=== PATIENT | female | born 1955 | race Caucasian/White ===

== ENCOUNTER 2019-08-14 08:30 | Outpatient (RCR) | payer OTHER, SELFPAY ==
--- NOTE | 2019-07-22 10:30 | PTOPEVAL ---
Thank you for referring this patient to [facility]. Please review, sign, date and return this plan of care SISI. Pt referred to therapy for neck and UE pain and radiating symptoms. She demonstrates posture impairments, joint movement impairment and soft tissue restrictions. Cont PT 2x/wk x 4 wk to address impairments and achieve therapy goals. I agree with and certify that the following plan of care is medically necessary. Referring Physician Date Attending Provider: Meghan Gimenez, PORTER Referring Provider: *PT Outpatient Evaluation Start: 07/22/19 09:07 Freq: Status: Active Protocol: Document 07/22/19 09:17 CAP (Rec: 07/22/19 10:30 CAP [email or web address]) Therapy Assessment Status Assessment Status Assessment Status Evaluation Outpatient Past Medical History Neurological History Hx Other Neurological Disorders Yes: Cervical rediculopathy. Cardiovascular History Hx Hypercholesterolemia Yes Respiratory History Hx Respiratory Disorders No Significant History Gastrointestinal History Hx Gastroesophageal Reflux Disease Yes Genitourinary History Hx Urinary Tract Infection Yes: as a child Musculoskeletal History Hx Arthritis Yes: hip Hx Other Musculoskeletal Disorders Yes: gets injections in lt wrist. Hematological History Hx Hematological Disorders No Significant History Endocrine History Hx Thyroidectomy Yes: goiter removed 1992. HEENT History Hx Sinus Problems Yes: surgery x2. Integumentary History Hx Skin Disorders No Significant History Reproductive History Hx Reproductive Disorders No Significant History Psychosocial History Hx Psychiatric Disorders No Significant History Pain History History of Any Previous or Ongoing No Significant History Instance of Pain Anesthesia History Hx Post-Op Nausea/Vomiting Yes: dizzy & nausea. Evaluation Information Problem Diagnosis neck and chris shoulder pain Onset 06/09/20 Cause lifting heavy object Subjective Information She went on cruise in June Query Text:As Reported By Patient/ when she lifted her luggage Family and noticed increased UE pain. She was using a cane for support, that also increased her pain. She reports raditating symptoms into chris UE. She has been using ice or heat , medication and stretching to manage her pain and symptoms. She reports UE symptoms increase with riding or driving in the car. She is
--- NOTE | 2019-08-14 09:42 | PTOPEVAL ---
Thank you for referring this patient to [facility]. Please review, sign, date and return this plan of care SISI. Linh has received 8 PT visits to address her neck and shoulder pain. She has improved pain, improved symptoms and improved joint motion and strength. She has achieved most of her therapy goals at this time. No additional PT planned at this time for her neck and shoulder impairments. Will keep chart open for possible return following her THR surgery. I agree with and certify that the following plan of care is medically necessary. Referring Physician Date Admitting Provider: Attending Provider: Meghan Gimenez, PORTER Referring Provider: *PT Outpatient Re-Evaluation/Discharge Start: 07/22/19 09:07 Freq: Status: Active Protocol: Document 08/14/19 08:31 RUBEN (Rec: 08/14/19 09:28 [facility] [email or web address]) Therapy Assessment Status Assessment Status Assessment Status Re-evaluation Evaluation Information Problem Diagnosis neck and chris shoulder pain Onset 06/09/20 Cause lifting heavy object Additional Evaluation Detail She is scheduled for hip surgery on 08/18/19. Subjective Information She reports her neck and Query Text:As Reported By Patient/ shoulder are slightly better Family since start of therapy. She has improved radiating symptoms into UE. She does have increased pain with prolonged sitting. She is able to drive care and sit in the car without increased symptoms . She does report neck pain with turning her head during driving. REports improved symptoms with lifting and carrying. She is using improved energy conservation technique to decrease stress. The pain will occasionally wake her at night, but unsure if due to neck, shoulder or hip pain. She feels the HEP has improved her symptoms and pain. She reports left UE symptoms have isolated to median nerve distribution. Pain Assessment Timing of Pain Assessment Timing of Pain Assessment Re-assessment Pain Scale Pain Scale Used Numeric (1 - 10) Self Report Pain Assessment Right Shoulder(s) Reported Pain Level 5 Pain Description Aching,Spasms,Tightness Pain Frequency
--- NOTE | 2019-08-24 15:39 | PCPTNOTE ---
Attending Provider: Meghan Gimenez, PORTER Patient:Linh Azar Date of :1955 Patient has not returned for any further treatments since 08/14/2019, therefore she will be discharged from therapy at this time. She had hip surgery on 08/18/19. She did not receive therapy orders to address limitations following the surgery. She has reached her therapy goals at this time. Thank you for referring this patient to [facility]. Please review, sign, date and return this discharge summary SISI. I have been updated about the patient's current status and I agree with discharge from the above service at this time. Referring Physician Date
== END 2019-08-25 09:44 | disposition home or self-care (01) ==
LOC: ANHPT 08:30
PROVIDERS: PCP Family Medicine Adolescent Medicine; Visit Provider Physician Assistant
DX: M54.2 Cervicalgia (principal); M25.512 Pain in left shoulder; M25.511 Pain in right shoulder
CPT/HCPCS: 97014; 97110; 97140; 97162; G0283

== ENCOUNTER 2019-08-18 11:31 | Inpatient (IN) | payer OTHER, SELFPAY ==
[2019-07-21 12:12] VITALS: BMI 27.5
[2019-07-21 12:50] VITALS: BMI 27.5
--- NOTE | 2019-08-17 18:10 | WPDANESEPP ---
Anes - Eval Pre Procedure Procedure: Operation Date: 08/18/19 07:30 Proposed Procedures p Right Total Hip Arthroplasty - Seymour Hinojosa MD Date/Time: 08/17/19 18:10 Pre Op Diagnosis: Right Hip OA Patient Data Age: 64 Gender: F Height: 1.75 m Weight: 84.5 kg Allergies Allergy/AdvReac Type Severity Reaction Status Date / Time codeine AdvReac Intermediate HALLUCINATI Verified 07/22/19 13:11 ONS Home Medications Medication Instructions Recorded Confirmed Type ascorbate calcium (vitamin C) 500 500 mg PO DAILY 05/19/19 08/12/19 History mg tablet aspirin 81 mg tablet,delayed 81 mg PO DAILY 05/19/19 08/12/19 History release atorvastatin 20 mg tablet 20 mg PO DAILY 05/19/19 08/12/19 History diclofenac sodium 75 mg 75 mg PO BID 05/19/19 08/12/19 History tablet,delayed release esomeprazole magnesium 40 mg 40 mg PO DAILY 05/19/19 08/12/19 History capsule,delayed release estradiol-norethindrone acet 1 1 tablet PO DAILY 05/19/19 08/12/19 History mg-0.5 mg tablet montelukast 10 mg tablet 10 mg PO DAILY 05/19/19 08/12/19 History multivitamin 1 tablet PO DAILY 05/19/19 08/12/19 History cyclobenzaprine 10 mg PO TID PRN 07/21/19 08/12/19 History vitamin B complex 1 tablet PO DAILY 07/21/19 08/12/19 History Patient hx anesthesia problems: none Family hx anesthesia problems: none PMFSH Past Medical History Medical History (Updated 08/17/19 @ 18:10 by Izabela Camilo CRNA) GERD (gastroesophageal reflux disease) Hyperlipidemia Osteoarthritis of right hip Overweight Surgical History Surgical History (Updated 08/17/19 @ 08:59 by Marcin Troy DO) History of History of partial hysterectomy History of sinus surgery History of thyroidectomy Exam Day of Procedure 08/17/19 18:10
[2019-08-18] VITALS (14 sets, daily range): BP systolic 97–134; BP diastolic 57–83; PULSE 67–99; RESP 10–18; TEMP 36.2–36.8; O2SAT 96–100; BMI 27.5
--- NOTE | ~2019-08-18 | XR_ITS ---
EXAMINATION: XR hip RT min 2V DATE: 08/18/2019 10:04 INDICATION: Postoperative evaluation following right total hip arthroplasty TECHNIQUE: Anteroposterior and lateral views of the right hip were obtained. COMPARISON: 08/12/2019 FINDINGS: Interval placement of a right total hip arthroplasty which appears well seated in near anatomic align ment. Expected subcutaneous gas in the postoperative bed. No fractures identified. IMPRESSION: 1. Right total hip arthroplasty, negative for postoperative purposes. Reviewed, dictated and finalized at location A. TICS WORKER
[2019-08-18] MEDS: LACTATED RINGERS 1,000 ML 30 ML IV CONT ×2 (06:40→09:42)
--- NOTE | 2019-08-18 06:41 | WPDANESEFPP ---
Anes - Eval Final PreProcedure Day of Procedure 08/18/19 06:41 Patient weight: overweight Heart: regular rate and rhythm Lungs: clear to auscultation and normal air movement Airway: Mallampati scale class III Neurological: alert and oriented Last oral intake: >/= 8 hours ASA classification: II Emergent: no Anesthetic plan: proceed Anesthesia type and monitoring: general ETT and standard monitoring Informed Consent: The patient's anesthetic plan and its attendant risks and benefits were discussed with the patient/family/POA. Questions were solicited and answers provided to the satisfaction of the patient/family/POA.
[2019-08-18] MEDS: FAMOTIDINE 20 MG/2 ML VIAL IV PUSH (06:53)
[2019-08-18] MEDS: SCOPOLAMINE 1.5 MG PATCH TRANSDERM (06:53)
--- NOTE | 2019-08-18 07:13 | WPDHPUPDATE1 ---
History and Physical Update Update Date/Time: 08/18/19 07:13 History and Physical has been reviewed, including an updated exam of the patient. There are NO changes in the patient's condition. Risks, benefits, and alternatives have been discussed and questions answered. Patient agrees to proceed with procedure.
[2019-08-18] MEDS: ceFAZolin 2 GM/D5W 50 ML 2 GM/50 ML BAG IVPB (07:32)
--- NOTE | 2019-08-18 09:58 | P.OP_ITS ---
Procedure Note - Detailed Date of procedure: 08/18/19 Pre-op diagnosis: Right Hip OA Post-op diagnosis: same Procedure performed: Total hip arthroplasty, right. Implants: The Accolade II hip stem, 127 degree size 5 , was utilized with excellent press-fit. The 48 mm ADM acetabular component was impacted with excellent press-fit stability. The +0 , 28 mm Biolox ceramic femoral head was utilized. Anesthesia: GLMA Surgeon: Seymour Hinojosa MD Estimated blood loss (mL): 300 Drains: No Complications: None Condition: stable Findings: OPERATIVE DETAILS: The patient was given preoperative antibiotics. A general anesthetic was administered. The patient was carefully placed in the lateral decubitus position on the PEG board. The shoulders and hips were carefully positioned for component and leg length positioning reference. The hip was prepped and draped in the usual sterile fashion. A longitudinal incision was created over the posterior aspect of the greater trochanter. Careful dissection was brought down through the deep fascia with electrocautery. A minimally invasive optimized posterior approach to the hip was performed. The short external rotators and capsule were taken down in an L-shaped capsulotomy. The tissue was tagged for later repair using number 2 high strength suture. The femoral neck was measured and taken in situ. The femoral head was removed. The acetabulum was carefully exposed. The inferior capsule was released. The labrum was resected. The acetabulum was sequentially reamed to one over the intended cup size. The cup was impacted into position with excellent press-fit. Typical anatomic landmarks, including the bony contact points as well as the inferior transverse acetabular ligament were used to confirm cup positioning with preoperative templating. Attention was turned to the femur, which was carefully exposed. The hip was reamed and then broached sequentially. Excellent press-fit was obtained with the broach. The hip was trialed. Measurements were utilized, including the lesser trochanter as well as the center of the femoral head and the tip of the trochanter, and excellent assessment of the offset and leg lengths were confirmed. The real component was impacted into position. Trialing confirmed appropriate leg length and offset with soft tissue balancing as well apparent feel of the leg, both at the knee and the heel. Soft tissues were assessed using the the iliotibial band. Reduction of the posterior capsule and external rotators were also used as a secondary assessment. The hip was copiously irrigated with pulsatile lavage antibiotic solution periodically throughout the procedure. The real components were then assembled and reduced. The hip was stable throughout typical maneuvers, including extension, external rotation to 70 degrees, the position of sleep as well as flexion to 90 degrees with internal rotation past 45 degrees. The shake test confirmed stability without impingement. Osteophytes were removed as necessary. The short external rotators and capsule were repaired back to the posterior trochanter through drill holes. The deep fascia was repaired with running number 2 Quill suture, followed by 0 Stratafix suture and 2-0 Stratafix suture in the dermis. Steri- Strips were placed on the skin, followed by a sterile silver occlusive dressing. There were no complications. Meticulous hemostasis was maintained with the AquaMantys device. The patient was brought to the recovery room in stable condition. There were no complications.
--- NOTE | 2019-08-18 11:27 | SUR.PHASEI ---
NO H&H STAT IN PACU PER DR. RUST
[2019-08-18 12:11] LABS: Hematocrit 42.1 % (37.0-47.0); Hemoglobin 13.4 g/dL (12.0-15.0)
[2019-08-18] MEDS: ASPIRIN 81 MG ENTERIC TABLET PO (17:47)
[2019-08-18] MEDS: MELOXICAM 7.5 MG TABLET PO (17:47)
[2019-08-18] MEDS: DOCUSATE SODIUM 100 MG CAPSULE PO (17:47)
[2019-08-19 02:17] VITALS: BP 130/65; PULSE 80; RESP 18; TEMP 36.8; O2SAT 100
[2019-08-19 06:29] LABS: Basophils Percent Auto 0.2 % (0.2-1.2); Eosinophils Percent Auto 0.1 % (0-4.4); Hematocrit 37.6 % (37.0-47.0); Hemoglobin 11.7 g/dL (12.0-15.0); Immature Granulocyte Absolute 0.04 K/mm3 (0.00-0.031); Immature Granulocyte Percent A 0.3 % (0-0.5); Lymphocytes Absolute Auto 1.61 K/mm3 (0.9-3.2); Lymphocytes Percent Auto 13.2 % (18.3-44.2); Mean Corpuscular HGB Conc 31.1 g/dl (32-36); Mean Corpuscular Volume 86.8 fl (80-100); Mean Platelet Volume 10.2 fl (7.4-10.4); Monocytes Absolute Auto 0.9 K/mm3 (0.1-0.6); Monocytes Percent Auto 7.5 % (2.6-8.5); Neutrophils Absolute Auto 9.6 K/mm3 (1.3-6.7); Neutrophils Percent Auto 78.7 % (45.5-73.1); Platelet Count Result 256 k/mm3 (150-375); Red Blood Count 4.33 M/mm3 (4.2-5.4); White Blood Count 12.2 K/mm3 (4.5-10.0)
[2019-08-19 06:44] LABS: Blood Urea Nitrogen 13 mg/dL (7-17); Calcium 8.8 mg/dL (8.4-10.2); Carbon Dioxide 27 mmol/L (22-30); Chloride 95 mmol/L (98-107); Estimated CRCL calculation 75 ml/min; Estimated Glomerular Filt Rate > 60; Glucose 123 mg/dL (65-105); Potassium 3.6 mmol/L (3.4-5.0); Sodium 135 mmol/L (137-145)
[2019-08-19 06:46] VITALS: BP 119/63; PULSE 79; RESP 18; TEMP 37.1; O2SAT 99
[2019-08-19] MEDS: ONDANSETRON INJ 4 MG/2 ML VIAL IV PUSH (09:24)
[2019-08-19] MEDS: ASPIRIN 81 MG ENTERIC TABLET PO (09:24)
[2019-08-19] MEDS: VITAMIN B COMPLEX CAPSULE 1 CAP PO (09:24)
[2019-08-19] MEDS: MONTELUKAST SODIUM 10 MG TABLET PO (09:24)
[2019-08-19] MEDS: PANTOPRAZOLE 40 MG TABLET PO (09:24)
[2019-08-19] MEDS: DOCUSATE SODIUM 100 MG CAPSULE PO (09:25)
[2019-08-19] MEDS: ATORVASTATIN 20 MG TABLET PO (09:25)
[2019-08-19] MEDS: MULTIVITAMINS THERAPEUTIC TAB (*BKC) 1 TABLET PO (09:25)
[2019-08-19] MEDS: MELOXICAM 7.5 MG TABLET PO (09:25)
[2019-08-19 10:00] VITALS: BP 118/54; PULSE 86; RESP 18; TEMP 37.1; O2SAT 100
[2019-08-19 10:32] VITALS: O2SAT 97
--- NOTE | 2019-08-19 13:54 | PM.DS ---
DS: Diagnosis Discharge Diagnosis (1) Osteoarthritis of right hip: Code(s): M16.11 - Unilateral primary osteoarthritis, right hip Status: Resolved DS: Summary Hospital Course Reason for hospitalization: Total hip arthroplasty. Hospital Course: Tolerated surgery well. Progressed appropriately with therapy. Status at Discharge Functional status at discharge: uses cane/walker Time Spent with Patient Time attestation: Total time spent providing and/or coordinating discharge services: Exam Const: General: no acute distress Resp: Effort & Inspection: normal respiratory effort Skin: Other: Wound healing well. Mepilex dressing intact. No hematoma or drainage. Neuro: Motor exam (neuro): 5/5 motor strength present throughout Sensory Exam: normal sensation Psych: Mental Status: mental status grossly normal Speech and movement: Normal speech and movement present DS: Data Data Completed and Pending Labs on day of discharge: Labs from last 24 hours 08/19/19 08/19/19 06:09 06:09 WBC 12.2 H RBC 4.33 Hgb 11.7 L Hct 37.6 MCV 86.8 MCH 27.0 MCHC 31.1 L RDW 13.0 Plt Count 256 MPV 10.2 Immature Gran % (Auto) 0.3 Neut % (Auto) 78.7 H Lymph % (Auto) 13.2 L [place] % (Auto) 7.5 Eos % (Auto) 0.1 Baso % (Auto) 0.2 Lymph # (Auto) 1.61 [place] # (Auto) 0.9 H Eos # (Auto) 0.0 Baso # (Auto) 0.0 Abs Immat Gran (auto) 0.04 H Absolute Neuts (auto) 9.6 H Absolute Nucleated RBC 0.0 Nucleated RBC % 0.0 Sodium 135 L Potassium 3.6 Chloride 95 L Carbon Dioxide 27 BUN 13 Creatinine 0.70 Estim Creat Clear Calc 75 Estimated GFR > 60 Glucose 123 H Calcium 8.8 Discharge Plan Discharge Attending physician on discharge: Seymour Hinojosa Discharging Clinician: Seymour Hinojosa Patient Disposition: Home, Self-Care Activity: may shower Diet: as tolerated Wound Care Instructions: follow printed instructions Patient Instructions: Antibiotic Form, Pain Management (DC), Total Hip Replacement (DC) Stand Alone Forms: General Discharge Information Follow-up/Referrals: Seymour Hinojosa MD [Physician] - Discharge Medications: New oxycodone-acetaminophen 5-325 mg tablet 1 - 2 tablet PO Q4-6H MDD 8 tablets PRN (Reason: pain) Qty: 30 RF: 0 Continued esomeprazole magnesium [Nexium] 40 mg capsule,delayed release(DR/EC) 40 mg PO DAILY RF: 0 montelukast 10 mg tablet 10 mg PO DAILY RF: 0 estradiol-norethindrone acet 1-0.5 mg tablet 1 tablet PO DAILY RF: 0 aspirin 81 mg tablet,delayed release (DR/EC) 81 mg PO DAILY RF: 0 diclofenac sodium 75 mg tablet,delayed release (DR/EC) 75 mg PO BID RF: 0 atorvastatin 20 mg tablet 20 mg PO DAILY RF: 0 multivitamin [Daily Multi-Vitamin] Tablet 1 tablet PO DAILY RF: 0 ascorbate calcium (vitamin C) 500 mg tablet 500 mg PO DAILY RF: 0 cyclobenzaprine 10 mg tablet 10 mg PO TID PRN (Reason: Back Pain) RF: 0 vitamin B complex Tablet 1 tablet PO DAILY RF: 0 Date of admission: 08/18/19 11:31 Primary Care Provider: Javan Farias Admitting Provider: Seymour Hinojosa Attending physician on admission: Seymour Hinojosa
== END 2019-08-19 14:30 | disposition home or self-care (01) | DRG 470 ==
LOC: ANH3MEDSUR 11:45
PROVIDERS: Admitting Provider Orthopaedic Surgery; PCP Family Medicine Adolescent Medicine; Visit Provider Orthopaedic Surgery
PROC: 0SR904A Replacement of Right Hip Joint with Ceramic on Polyethylene Synthetic Substitute, Uncemented, Open Approach (ICD-10-PCS; CPT 27130; principal; 2019-08-18 07:30)
DX: M16.11 Unilateral primary osteoarthritis, right hip (principal); K21.9 Gastro-esophageal reflux disease without esophagitis; Z90.710 Acquired absence of both cervix and uterus; E78.5 Hyperlipidemia, unspecified
CPT/HCPCS: 36415; 73502; 80048; 85014; 85018; 85025; 86850; 86900; 86901; 97110; 97116; 97161; 97165; 97535; A9270; C1776; J0131; J0171; J0690; J1100; J1170; J1885; J2250; J2270; J2405; J2704; J2795; J3010; J7120

== ENCOUNTER → 2020-06-28 14:45 | Outpatient (CLI) | payer OTHER, SELFPAY ==
--- NOTE | ~2020-06-28 | MM_ITS ---
EXAMINATION: MM screening jay BI w adelaida HISTORY: Screening mammogram TECHNIQUE: Craniocaudal and mediolateral oblique 3-D tomosynthesis images were obtained and synthetic 2-D images were generated. CAD analysis was submitted and interpreted. COMPARISON: 04/21/2019, 02/04/2018, 12/06/2016 bilateral digital screening mammogram examinations BREAST PARENCHYMAL COMPOSITION: There are scattered areas of fibroglandular density. FINDINGS: Occasional benign calcifications. There is no evidence of suspicious mass, calcification, o r architectural distortion to suggest malignancy in either breast. There has been no suspicious inter britni change. IMPRESSION: 1. No mammographic evidence of malignancy. 2. Recommend routine screening mammography in one year. BI-RADS Category 2: Benign finding(s). Reviewed, dictated and finalized at location A. 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
== END ==
PROVIDERS: PCP Family Medicine Adolescent Medicine; Visit Provider Obstetrics & Gynecology
DX: Z12.31 Encounter for screening mammogram for malignant neoplasm of breast (principal)
CPT/HCPCS: 77063; 77067

== ENCOUNTER → 2022-01-13 10:45 | Outpatient (CLI) | payer OTHER, SELFPAY ==
--- NOTE | ~2022-01-13 | XR_ITS ---
XR hip LT min 2V 01/13/2022 11:03 Indication: Left hip pain Procedure: 2 views left hip Comparison: No prior studies for comparison. Findings: There is mild osteoarthritis of the left hip. No fracture, subluxation or dislocation. No s ignificant soft tissue abnormality. No foreign bodies. Impression: 1: Mild osteoarthritis of the left hip. Reviewed, dictated and finalized at location A. Impression: 1: Mild osteoarthritis of the left hip.
== END ==
PROVIDERS: PCP Family Medicine; Visit Provider Family Medicine
DX: M16.12 Unilateral primary osteoarthritis, left hip (principal)
CPT/HCPCS: 73502

== ENCOUNTER 2022-02-22 00:52 | Day surgery (SDC) | payer OTHER, SELFPAY ==
[2022-02-14 10:25] VITALS: BMI 28.0
[2022-02-22 06:50] VITALS: BP 133/84; PULSE 71; RESP 18; TEMP 36.7; O2SAT 99
[2022-02-22] MEDS: LACTATED RINGERS 1,000 ML 150 ML IV CONT (07:00)
--- NOTE | 2022-02-22 07:24 | PM.IMHP ---
H&P: HPI History of Present Illness Date/Time: 02/22/22 07:24 Chief Complaint: Neoplasia screening. Narrative: This is a 67-year-old white female patient presents for screening colonoscopy. Family history is significant that her father had colon cancer. Patient presents today for neoplasia screening colonoscopy. She reports her current weight appetite bowel movements are normal. She denies abdominal pain. She has had no bleeding. Previous colonoscopy 2012 was unremarkable. Patient presents today for screening colonoscopy. Review of Systems Review of Systems: Review of systems noncontributory. 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 Screen for colon cancer Screening mammogram, encounter for Skin cancer Nose Skin lesion of face Thyroid goiter Surgical History Surgical History History of History of sinus surgery History of thyroidectomy 11/1992 rt thyroidectomy History of total hip replacement 08/18/19 rt hip Family History Family History Father Colon cancer Mother Rheumatoid arthritis Grandparent Heart disease maternal grandmother Sibling Hypertension sister Social History Social History Smoking packs per day: 1 Smoking cigarettes per day: 20.0 Years smoked: 20 Smoking pack-years: 20.00 Smoking status: Former smoker Tobacco type: cigarettes Smoking end date: 08/22/95 Alcohol intake: current Drinks per week: 2 Alcohol use details: about 4 drinks/month Substance use: never Substance use type: does not use Living arrangements: with family Additional living arrangements comments: spouse Gender identity (if verbalized by the patient): Female Sexual Orientation (if Verbalized by the Patient): Straight or Heterosexual Spiritual care concerns: No Agree to blood products: Yes Meds Home Medications and Allergies Home Medications Medication Instructions Recorded Confirmed Type ascorbate calcium (vitamin C) 500 500 mg PO DAILY 05/19/19 02/14/22 History mg tablet aspirin 81 mg tablet,delayed 81 mg PO DAILY 05/19/19 02/14/22 History release multivitamin (Daily Multi-Vitamin 1 tablet PO DAILY 05/19/19 02/14/22 History tablet) vitamin B complex 1 tablet PO DAILY 07/21/19 02/14/22 History atorvastatin 20 mg tablet 20 mg PO DAILY #90 tabs 08/26/21 02/14/22 Rx diclofenac sodium 75 mg 75 mg PO BID #180 tabs 09/03/21 02/14/22 Rx tablet,delayed release Saccharomyces boulardii 250 mg 5,000 mmu cells PO DAILY 01/09/22 02/14/22 History capsule (Daily Probiotic (S. boulardii)) estradiol 0.01% (0.1 mg/gram) 1 g vaginal 2XW 01/09/22 02/14/22 History vaginal cream esomeprazole magnesium 40 mg 40 mg PO DAILY #90 caps 01/15/22 02/14/22 Rx capsule,delayed release (Nexium) montelukast 10 mg tablet 10 mg PO DAILY #90 tabs 01/15/22 02/14/22 Rx peg 3350-electrolytes 236 240 ml PO Q10M #4,000 mL 01/18/22 02/14/22 Rx gram-22.74 gram-6.74 gram-5.86 gram solution (Golytely) Allergies Allergy/AdvReac Type Severity Reaction Status Date / Time codeine AdvReac Intermediate HALLUCINATI Verified 02/22/22 06:49 ONS Vital Signs Vital Signs - 24 hr 02/22/22 06:50 Temperature 98.1 F Pulse Rate 71 Respiratory Rate 18 Blood Pressure 133/84 Pulse Oximetry 99 Oxygen Delivery Room Air Exam Narrative: Is a Koul exam reveals patient to be alert. Vital signs stable. HEENT exam is unremarkable. Patient is anicteric. Lungs are clear to auscult
--- NOTE | 2022-02-22 07:48 | WPDANESEPPF ---
Anes - Initial Pre Proc Eval Procedure: Operation Date: 02/22/22 08:00 Proposed Procedures p Screening Colonoscopy - Pete Herzog MD Date/Time: 02/22/22 07:48 Surgeon: Pete Herzog MD Pre Op Diagnosis: family hx of colon ca Patient Data Age: 67 Gender: F Height: 1.73 m Weight: 81.5 kg Last Vital Signs Temp 98.1 F 02/22/22 06:50 Pulse 71 02/22/22 06:50 Resp 18 02/22/22 06:50 BP 133/84 02/22/22 06:50 Pulse Ox 99 02/22/22 06:50 O2 Del Method Room Air 02/22/22 06:50 Allergies Allergy/AdvReac Type Severity Reaction Status Date / Time codeine AdvReac Intermediate HALLUCINATI Verified 02/22/22 06:49 ONS Home Medications Medication Instructions Recorded Confirmed Type ascorbate calcium (vitamin C) 500 500 mg PO DAILY 05/19/19 02/14/22 History mg tablet aspirin 81 mg tablet,delayed 81 mg PO DAILY 05/19/19 02/14/22 History release multivitamin (Daily Multi-Vitamin 1 tablet PO DAILY 05/19/19 02/14/22 History tablet) vitamin B complex 1 tablet PO DAILY 07/21/19 02/14/22 History atorvastatin 20 mg tablet 20 mg PO DAILY #90 tabs 08/26/21 02/14/22 Rx diclofenac sodium 75 mg 75 mg PO BID #180 tabs 09/03/21 02/14/22 Rx tablet,delayed release Saccharomyces boulardii 250 mg 5,000 mmu cells PO DAILY 01/09/22 02/14/22 History capsule (Daily Probiotic (S. boulardii)) estradiol 0.01% (0.1 mg/gram) 1 g vaginal 2XW 01/09/22 02/14/22 History vaginal cream esomeprazole magnesium 40 mg 40 mg PO DAILY #90 caps 01/15/22 02/14/22 Rx capsule,delayed release (Nexium) montelukast 10 mg tablet 10 mg PO DAILY #90 tabs 01/15/22 02/14/22 Rx peg 3350-electrolytes 236 240 ml PO Q10M #4,000 mL 01/18/22 02/14/22 Rx gram-22.74 gram-6.74 gram-5.86 gram solution (Golytely) Patient hx anesthesia problems: none Family hx anesthesia problems: none Results Review: All pre-operative results and documents have been reviewed as part of the pre-operative evaluation. 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 Screen for colon cancer Screening mammogram, encounter for Skin cancer Nose Skin lesion of face Thyroid goiter Surgical History Surgical History History of History of sinus surgery History of thyroidectomy 11/1992 rt thyroidectomy History of total hip replacement 08/18/19 rt hip Family History Family History Father Colon cancer Mother Rheumatoid arthritis Grandparent Heart disease maternal grandmother Sibling Hypertension sister Social History Social History Smoking packs per day: 1 Smoking cigarettes per day: 20.0 Years smoked: 20 Smoking pack-years: 20.00 Smoking status: Former smoker Tobacco type: cigarettes Smoking end date: 08/22/95 Alcohol intake: current Drinks per week: 2 Alcohol use details: about 4 drinks/month Substance use: never Substance use type: does not use Living arrangements: with family Additional living arrangements comments: spouse Gender identity (if verbalized by the patient): Female Sexual Orientation (if Verbalized by the Patient): Straight or Heterosexual Spiritual care concerns: No Agree to blood products: Yes Anes - Eval Final PreProcedure Day of Procedure 02/22/22 07:48 Patient weight: normal Heart: regular rate and rhythm Lungs: clear to auscultation Airway: Mallampati scale class II Neurological: alert and oriented Last oral intake: >/= 8 hours ASA classification: II Emergent:
[2022-02-22 08:10] VITALS: BP 122/80; PULSE 65; RESP 20; O2SAT 100
[2022-02-22 08:20] VITALS: BP 131/75; PULSE 58; RESP 20; O2SAT 100
[2022-02-22 08:30] VITALS: BP 138/77; PULSE 55; RESP 14; O2SAT 100
== END 2022-02-22 09:00 | disposition home or self-care (01) ==
PROVIDERS: PCP Family Medicine; Visit Provider Internal Medicine Gastroenterology
PROC: 0DJD8ZZ Inspection of Lower Intestinal Tract, Via Natural or Artificial Opening Endoscopic (ICD-10-PCS; CPT 45378; principal; 2022-02-22 08:00)
DX: Z12.11 Encounter for screening for malignant neoplasm of colon (principal); K64.8 Other hemorrhoids; Z80.0 Family history of malignant neoplasm of digestive organs; E78.5 Hyperlipidemia, unspecified; K21.9 Gastro-esophageal reflux disease without esophagitis; Z87.891 Personal history of nicotine dependence
CPT/HCPCS: G0105; J2704; J7120

== ENCOUNTER → 2022-03-20 11:19 | Outpatient (CLI) | payer OTHER, SELFPAY ==
--- NOTE | ~2022-03-20 | MM_ITS ---
EXAMINATION: MM screening [facility] BI w adelaida HISTORY: Screening mammogram TECHNIQUE: Craniocaudal and mediolateral oblique 3-D tomosynthesis images were obtained and synthetic 2-D images were generated. CAD analysis was submitted and interpreted. COMPARISON: 06/28/2020, 04/21/2019, 02/04/2018 bilateral screening mammogram examinations BREAST PARENCHYMAL COMPOSITION: There are scattered areas of fibroglandular density. FINDINGS: Suggestion of a 3.5 mm irregular mass in the central right breast (craniocaudal Tomosynthes is image 50/86) diagnostic right mammogram and right breast ultrasound examination are recommended. Otherwise there is no evidence of suspicious mass, calcification, or architectural distortion to sug gest malignancy in either breast. There has been no other suspicious interval change. IMPRESSION: 1. Suspected 3.5 mm irregular mass in central right breast 2. Diagnostic right mammogram and right breast ultrasound examination are recommended BI-RADS Category 0: Incomplete: Needs additional imaging evaluation. Reviewed, dictated and finalized at location A. IMPRESSION: 1. Suspected 3.5 mm irregular mass in central right breast 2. Diagnostic right mammogram and right breast ultrasound examination are recom mended BI-RADS Category 0: Incomplete: Needs additional imaging evaluation.
== END ==
PROVIDERS: PCP Family Medicine; Visit Provider Obstetrics & Gynecology
DX: Z12.31 Encounter for screening mammogram for malignant neoplasm of breast (principal); R92.8 Other abnormal and inconclusive findings on diagnostic imaging of breast
CPT/HCPCS: 77063; 77067

== ENCOUNTER → 2022-04-04 08:47 | Outpatient (CLI) | payer OTHER, SELFPAY ==
--- NOTE | ~2022-04-04 | MM_ITS ---
EXAMINATION: MM diagnostic jay RT w adelaida HISTORY: Suspected 3.5 mm irregular mass reported in central right breast on 03/20/2022 screening mamm ogram TECHNIQUE: Additional 3-D tomosynthesis images of the right breast were performed and synthetic 2-D i mages were generated. Rotated medial lateral craniocaudal views of right breast. CAD analysis was sub mitted and interpreted. COMPARISON: 03/20/2022 bilateral screening mammogram FINDINGS: No suspicious mass or architectural distortion is detected. The 3.5 mm irregular density no santiago in the central right breast on craniocaudal view is not confirmed on these supplemental views. IMPRESSION: 1. No mammographic evidence of malignancy 2. Routine mammographic screening is recommended. BI-RADS Category 1: Negative Reviewed, dictated and finalized at location A.
== END ==
PROVIDERS: PCP Family Medicine; Visit Provider Obstetrics & Gynecology
DX: R92.8 Other abnormal and inconclusive findings on diagnostic imaging of breast (principal)
CPT/HCPCS: 77061; 77065; G0279

== ENCOUNTER → 2023-06-19 10:09 | Outpatient (CLI) | payer OTHER, SELFPAY ==
--- NOTE | ~2023-06-19 | MM_ITS ---
EXAMINATION: MM screening jay BI w adelaida HISTORY: Screening TECHNIQUE: Craniocaudal and mediolateral oblique 3-D tomosynthesis images were obtained and synthetic 2-D images were generated. CAD analysis was submitted and interpreted. COMPARISON: Comparison to multiple prior studies sequentially, with oldest reviewed study dated 07/2016. BREAST PARENCHYMAL COMPOSITION: Breast composed of scattered areas of fibroglandular density FINDINGS: There is no evidence of suspicious mass, calcification, or architectural distortion to sugg est malignancy in either breast. There has been no suspicious interval change. IMPRESSION: 1. No mammographic evidence of malignancy. 2. Recommend routine screening mammography in one year. BI-RADS Category 1: Negative Reviewed, dictated and finalized at location A. 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
== END ==
PROVIDERS: PCP Family Medicine; Visit Provider Obstetrics & Gynecology
DX: Z12.31 Encounter for screening mammogram for malignant neoplasm of breast (principal)
CPT/HCPCS: 77063; 77067

== ENCOUNTER 2023-11-14 08:37 | Outpatient (CLI) | payer OTHER, SELFPAY ==
--- NOTE | ~2023-11-14 | XR_ITS ---
AP view of the pelvis and AP and lateral views of the left hip Clinical history: Pain Findings: No acute fracture or dislocation is seen. Osseous alignment is anatomic. There is minimal d egenerative spurring of the left acetabular margin. 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 Soft tissues are unremarkable. Impression: Minimal degenerative change left hip joint. Right hip arthroplasty. Reviewed, dictated and finalized at location . Impression: Minimal degenerative change left hip joint. Right hip arthroplasty.
== END 2023-11-14 08:38 ==
PROVIDERS: PCP Family Medicine; Visit Provider Orthopaedic Surgery
DX: M16.12 Unilateral primary osteoarthritis, left hip (principal); Z96.641 Presence of right artificial hip joint
CPT/HCPCS: 73502

== ENCOUNTER 2024-10-07 10:20 | Outpatient (CLI) | payer OTHER, SELFPAY ==
--- NOTE | ~2024-10-07 | MM_ITS ---
EXAMINATION: MM screening jay BI w adelaida HISTORY: Screening TECHNIQUE: Craniocaudal and mediolateral oblique 3-D tomosynthesis images were obtained and synthetic 2-D images were generated. CAD analysis was submitted and interpreted. COMPARISON: Comparison to multiple prior studies sequentially, with oldest reviewed study dated 02/04. BREAST PARENCHYMAL COMPOSITION: Not dense: There are scattered areas of fibroglandular density. FINDINGS: There is no evidence of suspicious mass, calcification, or architectural distortion to sugg est malignancy in either breast. There has been no suspicious interval change. IMPRESSION: 1. No mammographic evidence of malignancy. 2. Recommend routine screening mammography in one year. BI-RADS Category 1: Negative Reviewed, dictated and finalized at location A.
== END 2024-10-07 10:21 | disposition home or self-care (01) ==
LOC: MICIMG 10:21
PROVIDERS: PCP Family Medicine; Visit Provider Obstetrics & Gynecology
DX: Z12.31 Encounter for screening mammogram for malignant neoplasm of breast (principal)
CPT/HCPCS: 77063; 77067

== ENCOUNTER 2024-10-19 09:11 | Outpatient (CLI) | payer OTHER, SELFPAY ==
--- NOTE | 2024-10-19 09:29 | ECG_ITS ---
Test Date: 2024-10-19 09:39:49 Measurements Intervals [place] Rate: 57 P: 63 ND: 211 QRS: -11 QRSD: 83 T: 54 QT: 425 QTc: 415 Interpretive Statements SINUS BRADYCARDIA WITH FIRST DEGREE AV BLOCK DELAYED PRECORDIAL R/S TRANSITION BASELINE ARTIFACT- AVR, AVL, AVF, V5 BORDERLINE ECG No previous ECG available for comparison Electronically Signed On 10-19-2024 09:47:42 CDT by [place] D.O.
[2024-10-19 09:40] LABS: Hematocrit 39.4 % (37.0-47.0); Hemoglobin 12.3 g/dL (12.0-15.0)
[2024-10-19 09:46] LABS: Albumin Level 4.5 g/dL (3.5-5.1); Estimated Glomerular Filt Rate > 60; Glucose 105 mg/dL (65-110)
[2024-10-19 09:49] LABS: Hemoglobin A1C 5.9 % (<5.7)
--- OUTSIDE RECORDS SUMMARY | 2024-10-19 09:50 | XMS_ITS | Clinical Summary ---
Author Organization [facility] Address [address] [place] [address] Care Team Providers Care Mechanical Equipment Test Engineer Name Role Phone Unavailable Primary Care Provider Unavailabl e Source Comments [facility],non-owned Affiliates and Associated Physician Practices is amultiple site organization consisting of ambulatory clinics and hospital sitesin [place], [place], [place] and [place]. This disclosure is being madepursuant to the Care Everywhere program and may not contain all information available regarding this patient. Last updated 18.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 Gender Identity Not on file Sexual Orientation Not on file Plan of Treatment Health Maintenance Due Date Last Done Comments BONE DENSITY TESTING 1957 COLOGUARD (AGES 45-75) - COL ON CA SCREENING 1957 COLON MONITORING 1957 COLONOSCOPY - COLON CA SCREENING 1957 CT COLONOGRAPHY - COLON CA SCREENING 1957 Colorectal Cancer Screening 1957 FIT - COLON CA SCREENING 1957 FLEX SIG - COLON CA SCREENING 1957 LIPID TESTING 1957 MAMMOGRAM 1957 MEDICARE AWV 12 MONTHS 1957 HEPATITIS C SCREENING 01/02/1975 DTAP/TDAP/TD VACCINES (1 - Tdap) 01/07/1976 PNEUMOCOCCAL VACCINE 50+ (1 of 1 - PCV) 2007 ZOSTER VACCINE (1 of 2) 2007 COVID-19 VACCINE ( - 2023-2 5 season) 2024 DEPRESSION SCREENING 07/08/2024 INFLUENZA VACCINE (Season Ended) 2025 Respiratory Syncytial Virus (RSV) Vaccine Pt: or over 60 yrs (1 - 1-dose 75+ series) 01/07/2032 HEPATITIS B VACCINE Aged Out No longe r eligible based on patient's age to complete this topic HIB VACCINE Aged Out No longer eligi ble based on patient's age to complete this topic HPV VACCINE Aged Out No longer eligi ble based on patient's age to complete this topic MENINGOCOCCAL (Group B) VACC INE SHARED DECISION-MAKING Aged Out No longer eligibl e based on patient's age to complete this topic MENINGOCOCCAL GROUPS A/C/Y/W VACCINE Aged Out No longer eligible b ased on patient's age to complete this topic Insurance [facility] MEDICARE
--- OUTSIDE RECORDS SUMMARY | 2024-10-19 09:50 | XMS_ITS | Encounter Summary ---
Author Organization [facility] Address [address] [place] [address] Care Team Providers Care Cabinet Mounter Name Role Phone Unavailable Primary Care Provider Unavailabl e Encounter Details Date Type Department Care Team (Late st Contact Info) Description 09/12/2023 Lab Requisition [facility] - DermPath Lab [address] [place] [id number] Farhat Swan MD [facility] DERMATOLOGY [address] [place] [phone] Neoplasm of uncertain behavior of skin Social History Tobacco Use Types Packs/Day Years Used Date Smoking Tobacco: Never Assessed Comments Unknown Sex and Gender Information Value Date Recorded Sex Assigned at Not on file 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 Gender Identity Not on file Sexual Orientation Not on file documented as of this encounter Plan of Treatment Not on file documented as of this encounter Procedures Procedure Name Priority Date/Time Associated Diagnosis Comments DERMATOPATHOLOGY Routine 09/12/2023 12:0 0 AM STEEL POURER HELPER Neoplasm of uncertain behavior of skin documented in this encounter Results * DERMATOPATHOLOGY (09/12/2023 12:00 AM STEEL POURER HELPER) Case Report Dermatopathology Report Case: [id number] Authorizing Provider: Farhat Swan MD Collected: 09/12/2023 12:00 AM Ordering Location: [facility] - Received: 09/13/2023 12:54 PM DermPath Lab Pathologist: Rupali Mata MD Specimen: Skin, left medial superior chest 1:23 PM CDT DERMATOPATHOLOGY LABORATORY Final Diagnosis Specimen A. SKIN, left medial superior chest: SEBORRHEIC KERATOSIS, INFLAMED (L82.0) 1:23 PM T DERMATOPATHOLOGY LABORATORY Clinical History Atypical Nevus vs Seborrheic Keratosis 4 1:23 PM T DERMATOPATHOLOGY LABORATORY Gross Description Specimen A: Received is one formalin filled container labeled with the patient's name and designated left medial superior chest. The specimen consists of a shave biopsy measuring 4x4x2 mm. Jar 0. 1:23 PM T DERMATOPATHOLOGY LABORATORY Microscopic Description Specimen A. SKIN, left medial superior chest: There is hyperkeratosis, parakeratosis, papillomatosis, and acanthosis of the epidermis. 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 1:23 PM T DERMATOPATHOLOGY LABORATORY Disclaimer An external and internal positive and negative controls are appropriate for the histochemical, immunohistochemical and immunofluorescence stain(s) in this case (if any), except where stated explicitly. The performance characteristics of the stain(s) cited in this report were developed and its performance characteristic determined by the Dermatopathology Laboratory at [facility], directed by Dr. Nallely Haque. These tests need not be, and therefore are not, approved by the [place] Food and Drug Administration. The tests are used for clinical purposes. Billing Codes Specimen Charges Stain Charges 01923 1 1:23 PM CDT DERMATOPATHOLOGY LABORATORY Embedded Images 1:23 PM T DERMATOPATHOLOGY LABORATORY Pathology/Cytolog y TISSUE SPECIMEN FROM SKIN / Unknown 09/12/2023 09/13/2023 12:54 PM STEEL POURER HELPER us Farhat Swan MD LAB - PATHOLOGY/CYTOLOGY WILFREDO ADAMES Final Result DERMATOPATHOLOGY LABORATORY [facility] - Department of Dermatology [address], [address] [phone] documented in this encounter Visit Diagnoses Diagnosis Neoplasm of uncertain behavior of skin documented in this encounter
== END 2024-10-19 09:12 | disposition home or self-care (01) ==
PROVIDERS: PCP Family Medicine; Visit Provider Orthopaedic Surgery
DX: R94.31 Abnormal electrocardiogram [ECG] [EKG] (principal); M16.12 Unilateral primary osteoarthritis, left hip; E04.9 Nontoxic goiter, unspecified; E78.2 Mixed hyperlipidemia; R73.01 Impaired fasting glucose
CPT/HCPCS: 36415; 82040; 82565; 82947; 83036; 85014; 85018; 93005

== ENCOUNTER 2024-11-17 07:54 | Outpatient (CLI) | payer OTHER, SELFPAY ==
--- OUTSIDE RECORDS SUMMARY | 2024-11-17 08:03 | XMS_ITS | Encounter Summary ---
Author Organization [facility] Address [address] [place] [address] Care Team Providers Care Scientific Manager Name Role Phone Unavailable Primary Care Provider Unavailabl e Encounter Details Date Type Department Care Team (Late st Contact Info) Description 09/12/2023 Lab Requisition [facility] - DermPath Lab [address] [place] [phone] Farhat Swan MD [facility] DERMATOLOGY [address] [place] [phone] Neoplasm of uncertain behavior of skin Social History Tobacco Use Types Packs/Day Years Used Date Smoking Tobacco: Never Assessed Comments Unknown Sex and Gender Information Value Date Recorded Sex Assigned at Not on file 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 Gender Identity Not on file Sexual Orientation Not on file documented as of this encounter Plan of Treatment Not on file documented as of this encounter Procedures Procedure Name Priority Date/Time Associated Diagnosis Comments DERMATOPATHOLOGY Routine 09/12/2023 12:0 0 AM VICE CHAIR Neoplasm of uncertain behavior of skin documented in this encounter Results * DERMATOPATHOLOGY (09/12/2023 12:00 AM VICE CHAIR) Case Report Dermatopathology Report Case: [id number] Authorizing Provider: Farhat Swan MD Collected: 09/12/2023 12:00 AM Ordering Location: [facility] - Received: 09/13/2023 12:54 [...] characteristic determined by the Dermatopathology Laboratory at [facility], directed by Dr. Nallely Haque. These tests need not be, and therefore are not, approved by the [place] Food and Drug Administration. The tests are used for clinical purposes. Billing Codes Specimen Charges Stain Charges 72217 1 1:23 PM CDT DERMATOPATHOLOGY LABORATORY Embedded Images 1:23 PM T DERMATOPATHOLOGY LABORATORY Pathology/Cytolog y TISSUE SPECIMEN FROM SKIN / Unknown 09/12/2023 09/13/2023 12:54 PM VICE CHAIR us Farhat Swan MD LAB - PATHOLOGY/CYTOLOGY WILFREDO ADAMES Final Result DERMATOPATHOLOGY LABORATORY [facility] - Department of Dermatology [address] [phone] documented in this encounter Visit Diagnoses Diagnosis Neoplasm of uncertain behavior of skin documented in this encounter
--- OUTSIDE RECORDS SUMMARY | 2024-11-17 08:03 | XMS_ITS | Clinical Summary ---
Author Organization [facility] Address [address] [place] [address] Care Team Providers Care Farm Machine Operator Name Role Phone Unavailable Primary Care Provider Unavailabl e Source Comments [facility],non-owned Affiliates and Associated Physician Practices is amultiple site organization consisting of ambulatory clinics and hospital sitesin [place], [place], [place] and [place]. This disclosure is being madepursuant to the Care Everywhere program and may not contain all information available regarding this patient. 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
[2024-11-17 09:20] LABS: Basophils Absolute Auto 0.1 K/mm3 (0.0-0.1); Basophils Percent Auto 0.9 % (0.2-1.2); Eosinophils Absolute Auto 0.1 K/mm3 (0-0.3); Eosinophils Percent Auto 1.8 % (0-4.4); Hematocrit 40.3 % (37.0-47.0); Hemoglobin 12.3 g/dL (12.0-15.0); Immature Granulocyte Absolute 0.01 K/mm3 (0.00-0.031); Immature Granulocyte Percent A 0.2 % (0-0.5); Lymphocytes Absolute Auto 1.63 K/mm3 (0.9-3.2); Lymphocytes Percent Auto 29.6 % (18.3-44.2); Mean Corpuscular HGB Conc 30.5 g/dl (32-36); Mean Corpuscular Hemoglobin 27.7 pg (26-34); Mean Corpuscular Volume 90.8 fl (80-100); Monocytes Absolute Auto 0.5 K/mm3 (0.1-0.6); Monocytes Percent Auto 9.1 % (2.6-8.5); Neutrophils Absolute Auto 3.2 K/mm3 (1.3-6.7); Neutrophils Percent Auto 58.4 % (45.5-73.1); Platelet Count Result 210 k/mm3 (150-375); Red Blood Count 4.44 M/mm3 (4.2-5.4); Red Cell Distribution Width 13.3 % (11.5-14.5); White Blood Count 5.5 K/mm3 (4.5-10.0)
[2024-11-17 10:24] LABS: Urine Cotinine NEGATIVE
[2024-11-17 10:43] LABS: MRSA (PCR) NOT DETECTED (NOT DETECTE)
== END 2024-11-17 07:55 | disposition home or self-care (01) ==
LOC: ANHSURGERY 07:57
PROVIDERS: PCP Family Medicine; Visit Provider Orthopaedic Surgery
DX: Z01.812 Encounter for preprocedural laboratory examination (principal); M16.12 Unilateral primary osteoarthritis, left hip
CPT/HCPCS: 80307; 85025; 87641

== ENCOUNTER 2024-12-15 01:07 | Day surgery (SDC) | payer OTHER, SELFPAY ==
--- NOTE | 2024-11-17 07:56 | PC.NURSE ---
Report to the Outpatient Waiting Room, entrance under the green pavilion located off [facility], at time ___8:00AM____ on date ___12/15/24____. Planned Procedure Time: __10:00AM .? Time changes happen often and if your time is changed the preop area will call you the afternoon before. - You and your visitor will be asked to self-screen and do not enter if you have any COVID symptoms. Please call surgeon if you need to reschedule. - A mask is optional within the hospital at this time. Patients may have clear liquids (water, carbonated beverages, clear teas, apple juice) until 3 hours prior to surgery (7:00AM) with a maximum of 20 ounces. - No food from midnight until time of surgery and no smoking, or chewing tobacco (or any form of nicotine). No chewing gum, candy or mints. Take only the following medications with a SIP of water on the morning of surgery: NONE DO NOT STOP ANY OF YOUR OTHER PRESCRIPTION MEDICATIONS PRIOR TO SURGERY EXCEPT THE FOLLOWING Hold all vitamins and supplements for 3 days per anesthesiologist.-LAST DOSE 12/11/24 Medications to discontinue per physician HOLD ASPIRIN AND DICLOFENAC (ALL NSAIDS) 7 DAYS PRE-OP PER DR RUST Date to take last dose 12/07/24 Please no make-up, nail czech, hairspray, perfume, deodorant, or body powder the day of surgery.? No jewelry (including any body piercings) or valuables the day of surgery, leave them at home.? Please take a shower or bath the night before, or the morning of, surgery with an antibacterial soap.? Wear comfortable, loose fitting clothing.? - Jewelry must be removed prior to entering the operating room.? Rings and piercings that are not removed may be cut off. - The hospital will not accept responsibility for valuables.? - Please leave all valuables, including medications, at home the day of surgery. If you are going home after surgery, a licensed shuttle bus driver must drive you home.? - NO public transportation without another adult if you receive anesthesia. - We recommend that an adult stay with you for 24 hours following discharge. - We also recommend that you do not drive, make important decision, drink alcoholic beverages, or take any drugs that were not prescribed by your health care provider for at least 24 hours after your discharge time. Follow any additional instructions given to you from your surgeon. Telephone instructions given to ____PATIENT and asked if any additional questions and then verbalized understanding. Patient advised to call surgeon office or pre surgery nurse liaison [phone] if any additional questions.
[2024-11-17 08:07] VITALS: BP 143/84; PULSE 56; RESP 16; TEMP 36.7; O2SAT 99; BMI 25.7
[2024-12-15] VITALS (14 sets, daily range): BP systolic 98–147; BP diastolic 52–76; PULSE 53–75; RESP 12–18; TEMP 35.7–36.6; O2SAT 95–100
--- NOTE | ~2024-12-15 | XR_ITS ---
EXAMINATION: XR hip LT min 2V DATE: 12/15/2024 14:17 INDICATION: Left total hip arthroplasty TECHNIQUE: 2 views left hip FINDINGS: There is a left total hip arthroplasty in expected position. Subcutaneous gas with soft ti ssue swelling are consistent with recent surgery. IMPRESSION: 1. Recent left total hip arthroplasty. Reviewed, dictated and finalized at location B.
--- OUTSIDE RECORDS SUMMARY | 2024-12-15 01:09 | XMS_ITS | Encounter Summary ---
Author Organization [facility] Address [address] [place] [address] Care Team Providers Care Machine Cutter Name Role Phone Unavailable Primary Care Provider Unavailabl e Encounter Details Date Type Department Care Team (Late st Contact Info) Description 09/12/2023 Lab Requisition [facility] - DermPath Lab [address] [place] [phone] Farhat Swan MD 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 Gender Identity Not on file Sexual Orientation Not on file documented as of this encounter Plan of Treatment Not on file documented as of this encounter Procedures Procedure Name Priority Date/Time Associated Diagnosis Comments DERMATOPATHOLOGY Routine 09/12/2023 12:0 0 AM US CUSTOMS AND BORDER OFFICER Neoplasm of uncertain behavior of skin documented in this encounter Results * DERMATOPATHOLOGY (09/12/2023 12:00 AM US CUSTOMS AND BORDER OFFICER) Case Report Dermatopathology Report Case: [id number] Authorizing Provider: Farhat Swan MD Collected: 09/12/2023 12:00 AM Ordering Location: [facility] - Received: 09/13/2023 12:54 PM DermPath Lab Pathologist: Rupali Mata MD Specimen: Skin, left medial superior chest 1:23 PM CDT DERMATOPATHOLOGY LABORATORY Final Diagnosis Specimen A. SKIN, left medial superior chest: SEBORRHEIC KERATOSIS, INFLAMED (L82.0) 1:23 PM T DERMATOPATHOLOGY LABORATORY at 1323 CDT Clinical History Atypical Nevus vs Seborrheic Keratosis 4 1:23 PM CDT DERMATOPATHOLOGY LABORATORY Gross Description Specimen A: Received [...] dermis that is focally lichenoid. 1:23 PM CDT DERMATOPATHOLOGY LABORATORY Disclaimer An external and internal positive and negative controls are appropriate for the histochemical, immunohistochemical and immunofluorescence stain(s) in this case (if any), except where stated explicitly. The performance characteristics of the stain(s) cited in this report were developed and its performance characteristic determined by the Dermatopathology Laboratory at [facility], directed by Dr. Nallely Hqaue. These tests need not be, and therefore are not, approved by the [place] Food and Drug Administration. The tests are used for clinical purposes. Billing Codes Specimen Charges Stain Charges 72586 1 1:23 PM CDT DERMATOPATHOLOGY LABORATORY Embedded Images 1:23 PM CDT DERMATOPATHOLOGY LABORATORY Pathology/Cytolog y TISSUE SPECIMEN FROM SKIN / Unknown 09/12/2023 09/13/2023 12:54 PM US CUSTOMS AND BORDER OFFICER us Farhat Swan MD LAB - PATHOLOGY/CYTOLOGY WILFREDO ADAMES Final Result DERMATOPATHOLOGY LABORATORY [facility] - Department of Dermatology [address] [phone] documented in this encounter Visit Diagnoses Diagnosis Neoplasm of uncertain behavior of skin documented in this encounter
--- OUTSIDE RECORDS SUMMARY | 2024-12-15 01:09 | XMS_ITS | Clinical Summary ---
Author Organization [facility] Address [address] [place] [address] Care Team Providers Care Receiver Dispatcher Name Role Phone Unavailable Primary Care Provider Unavailabl e Source Comments [facility],non-owned Affiliates and Associated Physician Practices is amultiple site organization consisting of ambulatory clinics and hospital sitesin [place], [place], [place] and [place]. This disclosure is being madepursuant to the Care Everywhere program and may not contain all information available regarding this patient. 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
--- NOTE | 2024-12-15 07:15 | WPDHPUPDATE1 ---
History and Physical Update Update Date/Time: 12/15/24 07:15 History and Physical has been reviewed, including an updated exam of the patient. There are NO changes in the patient's condition. Risks, benefits, and alternatives have been discussed and questions answered. Patient agrees to proceed with procedure.
[2024-12-15] MEDS: TRANEXAMIC ACID 1,000MG/ISO100 1,000 MG/100 ML BAG 200 MG IVPB (11:30)
[2024-12-15] MEDS: ACETAMINOPHEN 500 MG TABLET 1000 MG PO (11:30)
[2024-12-15] MEDS: LACTATED RINGERS 1,000 ML 30 ML IV CONT ×2 (11:30→13:47)
--- NOTE | 2024-12-15 11:57 | WPDANESEPPF ---
Anes - Initial Pre Proc Eval Procedure: Operation Date: 12/15/24 13:00 Proposed Procedures p Left Total Hip Arthroplasty - Seymour Hinojosa MD Date/Time: 12/15/24 11:57 Surgeon: Seymour Hinojosa MD Pre Op Diagnosis: Prim O A Lt Hip Patient Data Age: 69 Gender: F Height: 1.73 m Weight: 74.6 kg Last Vital Signs Temp 35.7 C L 12/15/24 11:30 Pulse 66 12/15/24 11:30 Resp 16 12/15/24 11:30 BP 147/76 H 12/15/24 11:30 Pulse Ox 100 12/15/24 11:30 O2 Del Method Room Air 12/15/24 11:30 Allergies Allergy/AdvReac Type Severity Reaction Status Date / Time codeine AdvReac Intermediate HALLUCINATI Verified 12/15/24 11:48 ONS Home Medications ?Medication ?Instructions ?Recorded ?Confirmed ?Type ascorbate calcium (vitamin C) 500 500 mg PO DAILY 05/19/19 12/11/24 History mg tablet aspirin 81 mg tablet,delayed 81 mg PO DAILY 05/19/19 12/15/24 History release multivitamin (Daily Multi-Vitamin 1 tablet PO DAILY 05/19/19 12/11/24 History tablet) lactobacillus combination no.9 4 4,000 mmu cells PO DAILY 05/28/22 12/11/24 History billion cell capsule (Adult 50 Plus Probiotic) estradiol 0.01% (0.1 mg/gram) 1 g vaginal 3XW #42.5 grams 08/22/23 12/11/24 Rx vaginal cream alpha lipoic acid 200 mg capsule 200 mg PO DAILY 05/28/24 12/11/24 History cyanocobalamin (vitamin B-12) 2,500 mcg PO DAILY 05/28/24 12/11/24 History 2,500 mcg tablet famotidine 40 mg tablet 40 mg PO QHS #90 tabs 05/28/24 12/11/24 Rx atorvastatin 20 mg tablet 20 mg PO .QOD #90 tabs 08/23/24 12/11/24 Rx diclofenac sodium 75 mg See Rx Instructions .Route 10/26/24 12/11/24 Rx tablet,delayed release .COMPLEX #180 tabs montelukast 10 mg tablet See Rx Instructions .Route 12/02/24 12/11/24 Rx .COMPLEX #90 tabs aspirin 81 mg tablet,delayed 81 mg PO BID 14 days #28 tabs 12/15/24 Rx release oxycodone-acetaminophen 5 mg-325 1 - 2 tablet PO Q4-6H PRN pain #30 12/15/24 Rx mg tablet tabs Patient hx anesthesia problems: none Family hx anesthesia problems: none Results Review: All pre-operative results and documents have been reviewed as part of the pre-operative evaluation. 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 Skin cancer Nose Aftercare following bilateral hip joint replacement surgery Overweight Hyperlipidemia Osteoarthritis of right hip GERD (gastroesophageal reflux disease) Surgical History Surgical History History of total hip replacement 08/18/19 rt hip History of thyroidectomy 11/1992 rt thyroidectomy History of History of sinus surgery Family History Family History Father Colon cancer Carcinoma of colon Mother Rheumatoid arthritis Sjogrens syndrome Grandparent Heart disease maternal grandmother Sibling Hypertension sister Breast cancer, Onset Age: 68 sister Colon polyp Social History Social History Smoking packs per day: 1 Smoking cigarettes per day: 20.0 Years smoked: 20 Smoking pack-years: 20.00 Smoking status: Former smoker Tobacco type: cigarettes Second hand tobacco smoke exposure: Yes Smoking end date: 08/22/95 Alcohol intake: current Alcohol use details: about 2 drinks/month Substance use: current Other substance usage details: occasional thc/cbd gummies Do You Feel Safe in your Home?: Yes Lack of Transportation: No Lack of Food: Never True Current Housing: I Have Housing Concerned About Future Housing: No Difficulty Paying Gas/Electric Bills: No Difficulty Paying for Meds: No Currently Unemployed: No Education: Associate Degree Difficulty w/ Childcare or Family Care: No Living arrangements: with family Additional living arrangements comments: spouse Occupation/Education: retired 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 Gender identity (if verbalized by the patient): Female Sexual Orientation (if Verbalized by the Patient): Straight or Heterosexual Spiritual care concerns: No Agree to blood products: Yes Anes - Eval Final PreProcedure Day of Procedure 12/15/24 11:57 Patient weight: normal Heart: regular rate and rhythm Lungs: clear to auscultation Airway: Mallampati scale class III Neurological: alert and oriented Last oral intake: >/= 8 hours ASA classification: III Emergent: no Anesthetic plan: proceed Anesthesia type and monitoring: general ETT and standard monitoring Results Review: All pre-operative results and documents have been reviewed as part of the pre-operative evaluation. Informed Consent: The patient's anesthetic plan and its attendant risks and benefits were discussed with the patient/family/POA. Questions were solicited and answers provided to the satisfaction of the patient/family/POA.
[2024-12-15] MEDS: SCOPOLAMINE 1 MG PATCH 1 PATCH TRANSDERM (12:02)
[2024-12-15] MEDS: ceFAZolin 2 GM/D5W 50 ML 2 GM/50 ML BAG IVPB ×3 (12:03→21:05)
[2024-12-15] MEDS: SODIUM CHLORIDE 0.9% IV 38.7 ML, ROPivacaine HCL 1% 200 MG, KETOROLAC INJ (*BKC) 15 MG,... INFILTRATE (12:54)
[2024-12-15] MEDS: TRANEXAMIC ACID 1,000 MG/10 ML AMPUL 1000 MG IV PUSH (13:21)
[2024-12-15] MEDS: fentaNYL CITRATE INJ (*CRX) 100 MCG/2 ML VIAL 25 MCG IV PUSH ×4 (14:00→14:23)
[2024-12-15] MEDS: oxyCODONE HCL (*CRX) 5 MG TAB IR PO (15:45)
[2024-12-15] MEDS: SODIUM CHLORIDE 0.9% IV 1,000 ML 125 ML IV CONT (15:46)
--- NOTE | 2024-12-15 16:49 | P.OP_ITS ---
Procedure Note - Detailed Date of Procedure 12/15/24 Pre-op Diagnosis Left hip degenerative arthritis. Post-op Diagnosis Same Procedure Performed Left Total Hip Arthroplasty Surgeon Seymour Hinojosa MD Anesthesia General Description of Procedure The patient was given preoperative antibiotics. A general anesthetic was administered. The patient was carefully placed in the lateral decubitus position on the PEG board. The shoulders and hips were carefully positioned for component and leg length positioning reference. The hip was prepped and draped in the usual sterile fashion. A longitudinal incision was created over the posterior aspect of the greater trochanter. Careful dissection was brought down through the deep fascia with electrocautery. A minimally invasive optimized posterior approach to the hip was performed. The short external rotators and capsule were taken down in an L-shaped capsulotomy. The tissue was tagged for later repair using number 2 high strength suture. The femoral neck was measured and taken in situ. The femoral head was removed. The acetabulum was carefully exposed. The inferior capsule was released. The labrum was resected. The acetabulum was sequentially reamed to one over the intended cup size. The cup was impacted into position with excellent press-fit. Typical anatomic landmarks, including the bony contact points as well as the inferior transverse acetabular ligament were used to confirm cup positioning with preoperative templating. Attention was turned to the femur, which was carefully exposed. The hip was reamed and then broached sequentially. Excellent press-fit was obtained with the broach. The hip was trialed. Measurements were utilized, including the lesser trochanter as well as the center of the femoral head and the tip of the trochanter, and excellent assessment of the offset and leg lengths were confirmed. The real component was impacted into position. Trialing confirmed appropriate leg length and offset with soft tissue balancing as well apparent feel of the leg, both at the knee and the heel. Soft tissues were assessed using the the iliotibial band. Reduction of the posterior capsule and external rotators were also used as a secondary assessment. The hip was copiously irrigated with pulsatile lavage periodically throughout the procedure. The real components were then assembled and reduced. The hip was stable throughout typical maneuvers, including extension, external rotation to 70 degrees, the position of sleep as well as flexion to 90 degrees with internal rotation past 35 degrees. The shake test confirmed stability without impingement. Osteophytes were removed as necessary. The short external rotators and capsule were repaired back to the posterior trochanter through drill holes. The deep fascia was repaired with running number 2 barbed suture, followed by 2-0 Stratafix suture and 3-0 Stratafix suture in the dermis. Steri-Strips were placed on the skin, followed by a sterile occlusive dressing. There were no complications. Meticulous hemostasis was maintained with the AquaMantys device. The patient was brought to the recovery room in stable condition. There were no complications. Implants [employer] [place] Insignia hip stem, high offset size 3 , was utilized with excellent press-fit. The 48 mm Trident II acetabular component was impacted with excellent press-fit stability. Standard polyethylene liner the +5, 36 mm Biolox ceramic femoral head was utilized. Estimated Blood Loss 200 Drains No Packing No Pathology None sent Complications No immediate complications Condition Stable Disposition PACU [facility] Billing Surgery - Charge Forward: Surgery Billing
[2024-12-15] MEDS: ACETAMINOPHEN 325 MG TABLET 650 MG PO ×2 (17:42→23:37)
[2024-12-15] MEDS: SENNA/DOCUSATE SODIUM TABLET 2 TAB PO (17:43)
[2024-12-15] MEDS: DICLOFENAC SOD 75 MG TABLET.EC BY MOUTH (17:43)
[2024-12-15] MEDS: ONDANSETRON INJ 4 MG/2 ML VIAL IV PUSH (18:29)
[2024-12-15] MEDS: ASPIRIN 81 MG ENTERIC TABLET PO (20:19)
[2024-12-15] MEDS: FAMOTIDINE 20 MG TABLET PO (20:19)
[2024-12-16 04:11] VITALS: BP 104/43; PULSE 57; RESP 16; TEMP 36.4; O2SAT 98
[2024-12-16 05:43] LABS: Basophils Percent Auto 0.1 % (0.2-1.2); Eosinophils Percent Auto 0.1 % (0-4.4); Hematocrit 36.2 % (37.0-47.0); Hemoglobin 11.5 g/dL (12.0-15.0); Immature Granulocyte Absolute 0.04 K/mm3 (0.00-0.031); Immature Granulocyte Percent A 0.3 % (0-0.5); Lymphocytes Absolute Auto 1.65 K/mm3 (0.9-3.2); Lymphocytes Percent Auto 14.1 % (18.3-44.2); Mean Corpuscular HGB Conc 31.8 g/dl (32-36); Mean Corpuscular Hemoglobin 27.9 pg (26-34); Mean Corpuscular Volume 87.9 fl (80-100); Mean Platelet Volume 10.4 fl (7.4-10.4); Monocytes Percent Auto 8.3 % (2.6-8.5); Neutrophils Percent Auto 77.1 % (45.5-73.1); Platelet Count Result 208 k/mm3 (150-375); Red Blood Count 4.12 M/mm3 (4.2-5.4); White Blood Count 11.7 K/mm3 (4.5-10.0)
[2024-12-16] MEDS: ACETAMINOPHEN 325 MG TABLET 650 MG PO (05:45)
[2024-12-16] MEDS: ceFAZolin 2 GM/D5W 50 ML 2 GM/50 ML BAG IVPB (05:46)
[2024-12-16 05:58] LABS: Anion Gap 6 mmol/L (4-12); Blood Urea Nitrogen 11 mg/dL (7-17); Calcium 9.1 mg/dL (8.4-10.2); Carbon Dioxide 26 mmol/L (22-30); Chloride 105 mmol/L (98-107); Estimated CRCL calculation 57 ml/min; Estimated Glomerular Filt Rate > 60; Glucose 118 mg/dL (65-110); Potassium 4.3 mmol/L (3.4-5.0); Sodium 137 mmol/L (137-145)
[2024-12-16] MEDS: polyethylene glycoL 3350 17 GM POWD.PACK PO (08:14)
[2024-12-16] MEDS: DICLOFENAC SOD 75 MG TABLET.EC BY MOUTH (08:14)
[2024-12-16] MEDS: FAMOTIDINE 20 MG TABLET PO (08:14)
[2024-12-16] MEDS: ASPIRIN 81 MG ENTERIC TABLET PO (08:14)
[2024-12-16] MEDS: SENNA/DOCUSATE SODIUM TABLET 2 TAB PO (08:14)
[2024-12-16] MEDS: oxyCODONE HCL (*CRX) 2.5 MG TAB IR PO (08:27)
[2024-12-16 08:37] VITALS: BP 111/49; PULSE 61; RESP 16; TEMP 36.9; O2SAT 100
[2024-12-16] MEDS: oxyCODONE HCL (*CRX) 5 MG TAB IR PO (11:12)
== END 2024-12-16 12:10 | disposition home or self-care (01) ==
LOC: ANHSURGERY 11:25 → ANH3MEDSUR 14:54
PROVIDERS: Physician Assistant Surgical; PCP Family Medicine; Visit Provider Orthopaedic Surgery
PROC: (CPT 27130; principal; 2024-12-15 13:00)
DX: M16.12 Unilateral primary osteoarthritis, left hip (principal); Z87.891 Personal history of nicotine dependence
CPT/HCPCS: 27130; 36415; 73502; 80048; 85025; 86850; 86900; 86901; 97110; 97116; 97161; 97165; A9270; C1776; J0171; J0690; J1100; J1885; J2250; J2270; J2405; J2704; J2795; J3010; J7030; J7120

== ENCOUNTER 2025-03-01 08:23 | Emergency (ER) | payer OTHER, SELFPAY ==
--- NOTE | ~2025-03-01 | XR_ITS ---
XR wrist LT min 3V 03/01/2025 08:57 Indication: Status post fall. Wrist pain. Procedure: 4 views left wrist Comparison: No prior studies for comparison. Findings: There is a probable nondisplaced scaphoid waist fracture. There is mild osteoarthritis of the triscaphe joint. No soft tissue abnormality. No foreign bodies. Impression: 1: Probable nondisplaced fracture of the scaphoid bone. Reviewed, dictated and finalized at location O. Impression: 1: Probable nondisplaced fracture of the scaphoid bone.
[2025-03-01 08:29] VITALS: BP 144/87; PULSE 74; RESP 16; TEMP 36.6; O2SAT 98
--- OUTSIDE RECORDS SUMMARY | 2025-03-01 08:33 | XMS_ITS | Clinical Summary ---
Author Organization [facility] Address [address] [place] [address] Care Team Providers Care Internship Coordinator Name Role Phone Unavailable Primary Care Provider Unavailabl e Source Comments [facility] [employer],non-owned Affiliates and Associated Physician Practices is amultiple site organization consisting of ambulatory clinics and hospital sitesin [place], [place], [place] and [place]. This disclosure is being madepursuant to the Care Everywhere program and may not contain all information available regarding this patient. 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
--- OUTSIDE RECORDS SUMMARY | 2025-03-01 08:33 | XMS_ITS | Encounter Summary ---
Author Organization [facility] Address [address] [place] [address] Care Team Providers Care Researcher Name Role Phone Unavailable Primary Care Provider Unavailabl e Encounter Details Date Type Department Care Team (Late st Contact Info) Description 09/12/2023 Lab Requisition [facility] - DermPath Lab [address] [place] [id number] Farhat Swan MD [facility] DERMATOLOGY [address] [place] [phone] Neoplasm of uncertain behavior of skin Social History Tobacco Use Types Packs/Day Years Used Date Smoking Tobacco: Never Assessed Comments Unknown Sex and Gender Information Value Date Recorded Sex Assigned at Not on file 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 Gender Identity Not on file Sexual Orientation Not on file documented as of this encounter Plan of Treatment Not on file documented as of this encounter Procedures Procedure Name Priority Date/Time Associated Diagnosis Comments DERMATOPATHOLOGY Routine 09/12/2023 12:0 0 AM NIPPLE MACHINE 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 Nallely Haque. These tests need not be, and therefore are not, approved by the [place] Food and Drug Administration. The tests are used for clinical purposes. Billing Codes Specimen Charges Stain Charges 98010 1 1:23 PM CDT DERMATOPATHOLOGY LABORATORY Embedded Images 1:23 PM CDT DERMATOPATHOLOGY LABORATORY Pathology/Cytolog y TISSUE SPECIMEN FROM SKIN / Unknown 09/12/2023 09/13/2023 12:54 PM NIPPLE MACHINE OPERATOR us Farhat Sawn MD LAB - PATHOLOGY/CYTOLOGY [facility] Final Result DERMATOPATHOLOGY LABORATORY [facility] - Department of Dermatology [address] [phone] documented in this encounter Visit Diagnoses Diagnosis Neoplasm of uncertain behavior of skin documented in this encounter
--- OUTSIDE RECORDS SUMMARY | 2025-03-01 09:25 | XMS_ITS | Encounter Summary ---
Author Organization [facility] Address [address] [place] [address] Care Team Providers Care Cell Liner Name Role Phone Unavailable Primary Care Provider Unavailabl e Encounter Details Date Type Department Care Team (Late st Contact Info) Description 09/12/2023 Lab Requisition [facility] - DermPath Lab [address] [place] [phone] Farhat Swan MD [facility] DERMATOLOGY [address] [place] [phone] Neoplasm of uncertain behavior of skin Social History Tobacco Use Types Packs/Day Years Used Date Smoking Tobacco: Never Assessed Comments Unknown Sex and Gender Information Value Date Recorded Sex Assigned at Not on file 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 Gender Identity Not on file Sexual Orientation Not on file documented as of this encounter Plan of Treatment Not on file documented as of this encounter Procedures Procedure Name Priority Date/Time Associated Diagnosis Comments DERMATOPATHOLOGY Routine 09/12/2023 12:0 0 AM BROADCAST PRODUCER Neoplasm of uncertain behavior of skin documented in this encounter Results * DERMATOPATHOLOGY (09/12/2023 12:00 AM BROADCAST PRODUCER) Case Report Dermatopathology Report Case: [id number] Authorizing Provider: Farhat Swan MD Collected: 09/12/2023 12:00 AM Ordering Location: [facility] - Received: 09/13/2023 12:54 PM [...] characteristic determined by the Dermatopathology Laboratory at [facility], directed by Dr. Nallely Haque. These tests need not be, and therefore are not, approved by the [place] Food and Drug Administration. The tests are used for clinical purposes. Billing Codes Specimen Charges Stain Charges 75610 1 1:23 PM CDT DERMATOPATHOLOGY LABORATORY Embedded Images 1:23 PM CDT DERMATOPATHOLOGY LABORATORY Pathology/Cytolog y TISSUE SPECIMEN FROM SKIN / Unknown 09/12/2023 09/13/2023 12:54 PM BROADCAST PRODUCER us Farhat Swan MD LAB - PATHOLOGY/CYTOLOGY [facility] Final Result DERMATOPATHOLOGY LABORATORY [facility] - Department of Dermatology [address] [phone] documented in this encounter Visit Diagnoses Diagnosis Neoplasm of uncertain behavior of skin documented in this encounter
--- OUTSIDE RECORDS SUMMARY | 2025-03-01 09:25 | XMS_ITS | Clinical Summary ---
Author Organization [facility] Address [address] [place] [address] Care Team Providers Care Business Support Specialist Name Role Phone Unavailable Primary Care Provider Unavailabl e Source Comments [facility] [employer],non-owned Affiliates and Associated Physician Practices is amultiple site organization consisting of ambulatory clinics and hospital sitesin [place], [place], [place] and [place]. This disclosure is being madepursuant to the Care Everywhere program and may not contain all information available regarding this patient. 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
[2025-03-01] MEDS: HYDROcodone/acetaminophen (*CRX) 5-325 MG TABLET 1 TAB PO (09:27)
--- NOTE | 2025-03-01 14:39 | ED.FALL ---
HPI - Fall General Chief Complaint: Fall Stated Complaint: fall last night, L wrist pain Time Seen by Provider: 03/01/25 08:32 History of Present Illness HPI Narrative: Patient was walking around 1st part yesterday when she tripped, fell and landed on her both hands, her right hand is fine but her left wrist and base of thumb are hurting. Normal range of motion Related Data Home Medications ?Medication ?Instructions ?Recorded ?Confirmed ?Last Taken ?Type ascorbate calcium (vitamin C) 500 500 mg PO DAILY 05/19/19 01/11/25 08/14/19 History mg tablet aspirin 81 mg tablet,delayed 81 mg PO DAILY 05/19/19 01/11/25 12/08/24 History release multivitamin (Daily Multi-Vitamin 1 tablet PO DAILY 05/19/19 01/11/25 08/14/19 History tablet) lactobacillus combination no.9 4 4,000 mmu cells PO DAILY 05/28/22 01/11/25 Unknown History billion cell capsule (Adult 50 Plus Probiotic) alpha lipoic acid 200 mg capsule 200 mg PO DAILY 05/28/24 01/11/25 Unknown History cyanocobalamin (vitamin B-12) 2,500 mcg PO DAILY 05/28/24 01/11/25 Unknown History 2,500 mcg tablet Allergies Allergy/AdvReac Type Severity Reaction Status Date / Time codeine AdvReac Intermediate HALLUCINATI Verified 03/01/25 08:24 ONS Review of Systems Review of Systems: All systems reviewed & are unremarkable except as noted in HPI and below PMFSH Past Medical History Medical History (Updated 03/01/25 @ 09:10 by Margot Shultz MD) Xerostomia Family history of Sjogren disease BMI 26.0-26.9,adult Screening mammogram, encounter for Left hand weakness Loose stools Osteoarthritis of left hip Varicosities of leg Breast mass, right Skin lesion of face Screen for colon cancer Chronic right hip pain Thyroid goiter BMI 28.0-28.9,adult Screening mammogram, encounter for 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 Skin cancer Nose Aftercare following bilateral hip joint replacement surgery Overweight Hyperlipidemia Osteoarthritis of right hip GERD (gastroesophageal reflux disease) Surgical History Surgical History (Updated 01/11/25 @ 09:19 by Jerri Grigsby CMA) Status post total hip replacement, left (~12/15/24) History of total hip replacement 2/11/20 rt hip History of thyroidectomy 11/1992 rt thyroidectomy History of History of sinus surgery Family History Family History Father Colon cancer Carcinoma of colon Mother Rheumatoid arthritis Sjogrens syndrome Grandparent Heart disease maternal grandmother Sibling Hypertension sister Breast cancer, Onset Age: 68 sister Colon polyp Social History Social History Smoking packs per day: 1 Smoking cigarettes per day: 20.0 Years smoked: 20 Smoking pack-years: 20.00 Smoking status: Former smoker Second hand tobacco smoke exposure: Yes Alcohol intake: current Alcohol use details: about 2 drinks/month Substance use: current Other substance usage details: occasional thc/cbd gummies Do You Feel Safe in your Home?: Yes Lack of Transportation: No Lack of Food: Never True Current Housing: I Have Housing Concerned About Future Housing: No Difficulty Paying Gas/Electric Bills: No Difficulty Paying for Meds: No Currently Unemployed: No Education: Associate Degree Difficulty w/ Childcare or Family Care: No Living arrangements: with family Additional living arrangements comments: spouse Occupation/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 EYES: EOMI, conjunctiva normal ENT: Hearing grossly intact LUNGS: Nonlabored breathing. HEART: [Regular rate and rhythm] ABD: [Soft], [nontender to palpation] EXT: Normal range of motion; large swelling to left wrist, no scaphoid tenderness to right hand, scaphoid tenderness to left hand SKIN: Bruising and abrasions bilateral hands NEURO: [Alert and oriented x 3. No gross focal sensory or strength deficits.] PSYCH: Normal affect Course Vital Signs Vital signs: Vital Signs Temperature 98 F 03/01/25 08:29 Pulse Rate 74 03/01/25 08:29 Respiratory Rate 16 03/01/25 08:29 Blood Pressure 144/87 H 03/01/25 08:29 Pulse Oximetry 98 03/01/25 08:29 Oxygen Delivery Room Air 03/01/25 08:29 Temperature 98 F 03/01/25 08:29 Pulse Rate 74 03/01/25 08:29 Respiratory Rate 16 03/01/25 08:29 Blood Pressure 144/87 H 03/01/25 08:29 Pulse Oximetry 98 03/01/25 08:29 Oxygen Delivery Room Air 03/01/25 08:29 MDM - Fall MDM Narrative Medical decision making narrative: Patient presenting here with fallen out torsion with scaphoid tenderness, with swelling, x-ray does show scaphoid fracture thankfully no wrist fracture. A thumb spica splint applied, importance follow-up to ortho given, with Plastic/Hand surgery Discharge Plan Discharge Clinical Impression: Fracture of scaphoid Patient Disposition: Home Condition: Stable Instructions: Scaphoid Fracture (ED) Additional Instructions: Please keep your hand in the splint, it is very important for you to follow-up with the hand surgeon since you may need surgery. You can always return to the ER you any new numbness or weakness or any other concerning issues. Patient Language: Italian Prescriptions: New oxycodone 5 mg capsule 5 mg PO Q8H PRN (Reason: pain) Qty: 10 0RF No Action aspirin 81 mg tablet,delayed release (DR/EC) 81 mg PO DAILY multivitamin [Daily Multi-Vitamin] Tablet 1 tablet PO DAILY ascorbate calcium (vitamin C) 500 mg tablet 500 mg PO DAILY Adult 50 Plus Probiotic 4 billion cell capsule 4,000 mmu cells PO DAILY Rx Instructions: administer with a meal cyanocobalamin (vitamin B-12) 2,500 mcg tablet 2,500 mcg PO DAILY alpha lipoic acid 200 mg capsule 200 mg PO DAILY famotidine 40 mg tablet 40 mg PO QHS Qty: 90 3RF aspirin 81 mg tablet,delayed release (DR/EC) 81 mg PO BID 14 Days Qty: 28 0RF estradiol 0.01 % (0.1 mg/gram) cream 1 g vaginal 3XW Qty: 42.5 6RF diclofenac sodium 75 mg tablet,delayed release (DR/EC) See Rx Instructions .ROUTE .COMPLEX Qty: 180 0RF Dose Instruction: Take 1 tablet by mouth twice daily Rx Instructions: Take 1 tablet by mouth twice daily atorvastatin 20 mg tablet 20 mg PO .QOD Qty: 90 0RF montelukast 10 mg tablet See Rx Instructions .ROUTE .COMPLEX Qty: 90 0RF Dose Instruction: Take 1 tablet by mouth once daily Rx Instructions: Take 1 tablet by mouth once daily Follow-up/Referrals: Gilda William MD [Physician, Plastic Surgery] - 2 Days Ishan Castaneda MD [Primary Care Provider, Family Practice]
== END 2025-03-01 10:07 | disposition home or self-care (01) ==
PROVIDERS: Emergency Provider Emergency Medicine; PCP Family Medicine
DX: S62.025A Nondisplaced fracture of middle third of navicular [scaphoid] bone of left wrist, initial encounter for closed fracture (principal); E78.5 Hyperlipidemia, unspecified; E89.0 Postprocedural hypothyroidism; K21.9 Gastro-esophageal reflux disease without esophagitis; M16.0 Bilateral primary osteoarthritis of hip; Z85.828 Personal history of other malignant neoplasm of skin; Z87.891 Personal history of nicotine dependence; Z96.643 Presence of artificial hip joint, bilateral; W01.0XXA Fall on same level from slipping, tripping and stumbling without subsequent striking against object, initial encounter
CPT/HCPCS: 29125; 73110; 99284; A9270

== ENCOUNTER 2025-04-08 09:15 | Outpatient (CLI) | payer OTHER, SELFPAY ==
--- NOTE | ~2025-04-08 | DEXA_ITS ---
Bone Density Report Name: QUIRINO CERVANTES Age: 70 Sex: Female Ethnicity: White Date of : 1955 Indication: postmenopausal; screening for osteoporosis; height loss; prior fracture; Referring Provider: ANDERSON MALLOY Study: Bone densitometry was performed. Exam Date: April 08, 2025 Accession number: [id number] Bone Density: Region BMD T-score Z-score Classification AP Spine(L1-L4) 1.103 0.5 2.5 Normal World Health Organization criteria for BMD impression classify patients as: Normal (T-score at or above -1.0), Osteopenia (T-score between -1.0 and -2.5), or Osteoporosis (T-score at or below -2.5). Previous Exams: -- Region Exam Age BMD T-score BMD Change BMD Change Date g/cm2 vs Baseline vs Previous -- AP Spine (L1-L4) 04/08/2025 70 1.103 0.5 -8.1%# -6.7%# 04/17/2012 57 1.183 1.2 -1.4% 3.4%* 10/14/2009 54 1.144 0.9 -4.6%* -3.5%* 11/05/2007 52 1.186 1.3 -1.1% -1.1% 08/24/2005 50 1.200 1.4 -- *Denotes significance at 95% confidence level, LSC for AP Spine = 0.022 g/cm2 # Denotes dissimilar scan types or analysis methods Clinical Information Provided by Patient: Has had a low trauma fracture Has used the following medications: HRT (i.e. estrogen/hormone therapy), Vitamin D, Calcium Patient maximum height was 69 Menopause Age: 50 Drinks caffeinated beverages Onset of menses at age 15 Number of children 3 Impression: The patient has normal bone mass. The patient has risk factors, including: previous fracture. Unable to evaluate interval change due to the use of different scan modes. Discussion: LOW RISK OF FRACTURE; BONE DENSITY IS WELL ABOVE THE MINIMUM DESIRABLE LEVEL AND ABOVE AVERAGE FOR AGE AND SEX AT ALL SKELETAL SITES TESTED. This person's bone density is above expected limits for age and sex. This is rarely clinically significant, but should be pursued if there are significant musculoskeletal complaints. The patient should follow a healthful lifestyle (good nutrition with adequate calcium and vitamin D, and appropriate weight-bearing exercise). Follow-Up: Consider repeating this study in 5 years or sooner if there is some new clinical indication. Reported by: SUMMER on 04/08/2025 9:46:00 AM. Reviewed, dictated and finalized at location A.
== END 2025-04-08 09:16 | disposition home or self-care (01) ==
LOC: MICIMG 09:15
PROVIDERS: PCP Family Medicine; Visit Provider Nurse Practitioner Family
DX: Z13.820 Encounter for screening for osteoporosis (principal); Z78.0 Asymptomatic menopausal state
CPT/HCPCS: 77080